=== PATIENT | female | born 1950 | race Caucasian/White ===

== ENCOUNTER → 2018-07-26 21:26 | Outpatient (CLI) | payer MEDICARE, SELFPAY ==
[2018-07-26 21:38] LABS: Absolute Lymphocyte Count 6.07 X10^3/ul (0.83-4.51); Absolute Neutrophil Count 4.6 X10^3/uL (2.0-7.7); Basophil# 0.04 X10^3/uL; Basophil% 0.4 % (0-1); Eosinophils% 0.9 % (0-5); Hemoglobin 13.2 g/dl (12.0-15.0); Lymphocyte # 6.07 X10^3/ul (4.0); Lymphocyte % 53.2 % (19-41); Mean Corpuscular Hgb 29.6 pg (27.0-32.0); Mean Corpuscular Volume 89.7 fL (81-99); Mean Platelet Vol. 10.2 fl (6.2-12.0); Monocyte% 5.3 % (0-10); Neutrophil # 4.58 X10^3/uL (2.7-7.7); Platelet Count 284 K/mm3 (150-450); RBC Distribution Width CV 12.2 % (11.6-14.6); RBC Distribution Width SD 39.9 fl (35.1-43.9); Red Blood Count 4.46 M/mm3 (4.2-5.4); White Blood Count 11.4 K/mm3 (4.4-11.0)
[2018-07-26 21:40] LABS: Differential Indicated SCAN CRITERIA MET; POSITIVE COUNT NO; POSITIVE DIFFERENTIAL YES; POSITIVE MORPHOLOGY NO
[2018-07-26 22:01] LABS: ALB/GLOB Ratio 0.9 RATIO (0.9-2.4); AST(SGOT) 16 U/L (15-37); Alanine Aminotransfer ALT/SGPT 20 U/L (13-56); Albumin, Serum 3.9 g/dL (3.2-5.0); Alkaline Phosphatase 71 U/L (45-117); Anion Gap 9 (5-15); BUN 28 mg/dL (7-18); BUN/Creat Ratio 32.4 RATIO (10-20); Calcium,Total 8.9 mg/dL (8.5-10.1); Chloride 106 mmol/L (98-107); Cholesterol 186 mg/dL (200); Creatinine, Serum 0.86 mg/dL (0.55-1.02); EST Glomerular Filtration Rate 70 mL/min (>60); Est Glom Filt Rate - Afr Amer 85 mL/min (>60); Globulin 4.2 g/dL (2.2-4.2); Glucose 130 mg/dL (74-106); High Density Lipoprotein 58 mg/dL; Protein, Total 8.1 g/dL (6.4-8.2); Sodium Level 138 mmol/L (136-145); Triglycerides 213 mg/dL; Very Low Density Lipoprotein 43 mg/dL (5-40)
[2018-07-26 22:31] LABS: Differential Comment SCANNED
== END ==
PROVIDERS: Visit Provider Nurse Practitioner
DX: E11.65 Type 2 diabetes mellitus with hyperglycemia (principal); E03.9 Hypothyroidism, unspecified; E78.5 Hyperlipidemia, unspecified; I10 Essential (primary) hypertension
CPT/HCPCS: 80053; 80061; 84443; 85025

== ENCOUNTER → 2019-03-20 | Outpatient (CLI) | payer MEDICARE, SELFPAY ==
[2019-03-20 14:50] VITALS: BMI 34.2
[2019-03-20 15:24] LABS: Hematocrit 41.6 % (37-47); Hemoglobin 13.5 g/dl (12.0-15.0); Mean Corp Hgb Conc 32.5 g/gl (32-36); Mean Corpuscular Hgb 28.5 pg (27.0-32.0); Mean Corpuscular Volume 87.8 fL (81-99); Mean Platelet Vol. 9.2 fl (6.2-12.0); Platelet Count 316 K/mm3 (150-450); RBC Distribution Width CV 12.6 % (11.6-14.6); RBC Distribution Width SD 40.4 fl (35.1-43.9); Red Blood Count 4.74 M/mm3 (4.2-5.4); White Blood Count 11.9 K/mm3 (4.4-11.0)
[2019-03-20 15:47] LABS: Scan Indicated on CBC? Y/N NO
== END | disposition home or self-care (01) ==
LOC: PAVLAB 14:58
PROVIDERS: Family Provider Nurse Practitioner; PCP Nurse Practitioner; Referring Provider Surgery; Visit Provider Surgery
DX: K62.5 Hemorrhage of anus and rectum (principal)
CPT/HCPCS: 36415; 85027

== ENCOUNTER 2019-03-24 06:03 | Day surgery (SDC) | payer MEDICARE, SELFPAY ==
[2019-03-20 14:50] VITALS: BMI 34.2
--- NOTE | 2019-03-24 05:17 | HP.PCM_ITS ---
Problem List (1) Rectal bleeding Status: Acute History and Physical Date of Admission: 03/24/19 MR#:[id number] Name: MICHAEL BAUTISTA Rep #: [id number] : 1950 Provider: Nathan Nuno MD Age/Sex: 68/F Location: [facility] [place] Status: Signed Intake Vital Signs 03/20/19 Height 5 ft 4 in 03/20/19 Weight: 200 lb 03/20/19 Body Mass Index (BMI) 34.3 03/20/19 Blood Pressure 183/105 H 03/20/19 Blood Pressure Location Lt brachial 03/20/19 Blood Pressure Position Sitting 03/20/19 Respiratory Rate 18 Intake Visit Reasons: [facility] [employer]nic [employer] Professor Required: No Is patient in pain?: No Allergies acetaminophen [From Vicodin] Allergy (Intermediate, Verified 03/20/19 14:26) Itching hydrocodone [From Vicodin] Allergy (Intermediate, Verified 03/20/19 14:26) Itching adhexive tape Allergy (Intermediate, Uncoded 03/20/19 14:26) dermatitis Medications blood sugar diagnostic strips See Dose Instructions .ROUTE .MEDSUPPLY #20 ea 07/25/18 [History Confirmed 07/25/18] atenolol 50 mg tablet 50 mg PO DAILY #90 tab 07/26/18 [Rx Confirmed 07/26/18] bupropion HCl XL 150 mg 24 hr tablet, extended release 150 mg PO QAM #90 tab 07/26/18 [Rx Confirmed 07/26/18] clopidogrel 75 mg tablet 75 mg PO DAILY #90 tab 07/26/18 [Rx Confirmed 07/26/18] lisinopril 20 mg tablet 20 mg PO DAILY #90 tab 07/26/18 [Rx Confirmed 07/26/18] metformin 1,000 mg tablet 1,000 mg PO BID #180 tab 07/26/18 [Rx Confirmed 07/26/18] fluoxetine 20 mg capsule 60 mg PO DAILY #270 cap 07/28/18 [Rx] levothyroxine 50 mcg tablet 50 mcg PO DAILY #90 tab 08/01/18 [Rx] pioglitazone 30 mg tablet 20 mg PO DAILY tab 03/20/19 [History Confirmed 03/20/19] PFSH Medical History Anger (Acute) Hepatitis A (Acute) Hyperlipidemia (Acute) IBS (irritable bowel syndrome) (Acute) Type 2 diabetes mellitus (Acute) stent non semi (Acute) Hypertension (Chronic) Surgical History H/O section (Acute) H/O heart artery stent (Acute) S/P tubal ligation (Acute) History of cholecystectomy (Acute) Family History Father Diabetes CAD (coronary artery disease) Hypertension Grandfather Heart disease Diabetes Social History Smoking Status: Never smoker alcohol intake: current HPI HPI HPI: MICHAEL BAUTISTA, is a 68 F who presents to the office today for HPI HPI Surgical H&P: Yes HPI: MICHAEL BAUTISTA, is a 68 F who presents to the office today for surgical consultation regarding repetitive episodes of bright red rectal bleeding. First episode was December 2018. Another episode January 2019. Then last week 2 additional episodes. She thinks in 2006 she had a colonoscopy. No acute findings at that time. She has a family history with a father with colon polyps. She has no family history of colon cancer. She personally has had a myocardial infarction. She has coronary stents. She is on clopidogrel. Her symptoms at the time of that was nausea with exertion. She is not complaining of that now. She is not a tobacco user. She has not had any weight loss and in fact she has had progressive weight gain. She denies any abdominal pain. Patient is referred by Lorrie Jack CNP and a written compromise surgical consult recommendations will be returned to her ROS General General: Yes weight change, appetite and fatigue; no colon cancer, breast cancer or weakness HEENT HEENT: No difficulty swallowing, eye injury, eye surgery, swollen glands or hoarseness Endo Endocrine: Yes thyroid disease and diabetes mellitus; no thyroid cancer, Hair loss, heat intolerance or cold intolerance Skin Skin: Yes changing moles; no rash Breast Breast: No left breast lump, right breast lump, nipple discharge, breast pain, abnormal mammogram, abnormal US or breast enlargement Musc Musculoskeletal: No back problems, arthritis, rheumatoid arthritis, gout or joint pain Cardio Cardiovascular: Yes heart disease, high blood pressure, heart attack and heart stent; no murmur, pacemaker, atrial fibrillation, palpitations, shortness of breat with exertion or chest pain Psych Psychiatric: Yes depression and anxiety; no hearing voices Resp Respiratory: Yes shortness of breath, No sleep apnea, No cough, No COPD, No asthma, No emphysema, No wheezing Gastro Gastrointestinal: No abdominal pain, Yes nausea or vomiting, Yes diarrhea, No constipation, Yes blood in stool, Yes acid reflux, Yes hemorrhoids, No ulcers, Yes gallbladder problem, No black,tarry stools [place] Hematologic: Yes blood thinners, No blood disorders, Yes bleeding, No anemia, No blood clots Neuro Neurologic: No system reviewed and no additional complaints, except as docu, No as per HPI, No abnormal walking, No abnormal hearing, No abnormal movements, No abnormal speech, No behavioral changes, No burning sensations, No confusion, No seizure-like activity, No unsteadiness, No dizziness, No localized weakness, No frequent falls, No headache(s), No lack of coordination, No loss of vision, No memory loss, No numbness, No other visual disturbances, No radiating pain, No restless legs, No sensory deficit, No fainting, No tingling, No tremor(s), No weakness, No other Exam Const General: cooperative, no acute distress Nutritional Appearance: obese Orientation: alert, awake [facility] Head: normal to inspection Eyes General: appearance normal, both eyes and all related structures Chest Breast Palpation: No nipple discharge Resp Effort & Inspection: normal respiratory effort Auscultation: clear to auscultation bilaterally Cardio Rate: regular rate Rhythm: regular rhythm Heart Sounds: no murmurs GI Palpation: soft, no hepatosplenomegaly Auscultation: normal bowel sounds Musc Cervical Spine: normal cervical lordosis Skin General: no rashes or lesions noted Neuro Cognition: normal cognition Extrem General: no calf tenderness bilaterally Psych Affect: normal affect Assessment & Plan Problems 1. Rectal bleeding K62.5 Plan 68-year-old female with rectal bleeding of undetermined etiology. She has no abdominal pain with this. Her last colonoscopy was 12 years ago. She has a family history of colon polyps in her father but no family history of colon cancer. I recommended the patient a colonoscopy with possible biopsy or polypectomy as indicated. She is aware of the technique, benefit, risk and alternatives. Because of the patient's cardiac history and history of coronary stenting I will utilize monitored anesthesia care. I have asked her to hold her clopidogrel just the day prior to the procedure. To assure that she is not significantly anemic we will also obtain a CBC. She has had an opportunity to ask and have questions answered. We will schedule and proceed as noted. cc: Lorrie Jack, MARTIR Nuno M.D., F.A.C.S. Coding Level of Care Code Detailed, Low Diagnoses Rectal bleeding K62.5 03/20/19 1450 <Electronically signed by Nathan Nuno MD> Date Nathan Nuno MD Cosigner Signature: Date (if applicable) CC: AGGIE Jack ~ I have re-examined the patient. There are no clinical changes since date of exam.
[2019-03-24 06:33] VITALS: BP 157/79; PULSE 55; RESP 16; TEMP 35.9; O2SAT 99; BMI 34.7
[2019-03-24 06:40] LABS: Bedside Glucose 218 mg/dL (70-110)
--- NOTE | 2019-03-24 07:00 | COLBX_PTH ---
PATIENT: MICHAEL BAUTISTA LOC: EN U#:[id number] AGE/SX: 68/F ROOM: RE03/24/[address]: Dr. Nathan Nuno MD : 1950 BED: DIS: 03/24/2019 SPEC #: [id number] RECD: 03/24/19 07:47 STATUS: CHRISTINE JOSE #: [id number] HAWA: 03/24/19 07:[address]: Nathan Nuno DEPT: SURGICAL PATHOLOGY RECD BY: Hernesto Moe ENTERED: 03/24/19 08:43 SP TYPE: COLON BX OTHR DR: Lorrie Jack, CERTIFIED PHLEBOTOMIST-C Tissues: Ascending colon Procedures: Surgery Specimen Level IV HEADER OPERATION: Colonoscopy (MAC) PRE-OP DIAGNOSIS: Rectal bleeding TISSUE SUBMITTED: Ascending colon polyp MICROSCOPIC DIAGNOSIS Ascending colon polyp, biopsy: Tubular adenoma. AM:nicolette 03/27/19 COMMENT Case has been reviewed in consultation with Dr. Piña who concurs with the above diagnosis. IDC:CHRSITIANO MICROSCOPIC DESCRIPTION Slides are reviewed. GROSS DESCRIPTION Received in fixative is one container labeled with the patient's name and designated ascending colon polyp. The specimen consists of one irregular fragment of light madrigal soft tissue that measures 0.5 x 0.2 x 0.1 cm. The specimen is totally submitted in one cassette. / CHRISTIANO:nicolette 03/24/19 TC:5 CPT: 29109
[2019-03-24 07:19] VITALS: BP 146/71; BP 157/79; PULSE 54; RESP 18; TEMP 36.4; O2SAT 98
--- NOTE | 2019-03-24 07:19 | OP.ENDO_ITS ---
03/24/2019 Lorrie Jack NP [facility] [address] [place] [id number] Re : Colonoscopy procedure for Meryl Kaba Dear Ms. Jack This procedure was performed on Sunday, March 24, 2019. My impressions and recommendations are as follows: Impressions : - Non-thrombosed external hemorrhoids, non-thrombosed internal hemorrhoids and internal hemorrhoids that prolapse with straining, but spontaneously regress to the resting position (Grade II) found on digital rectal exam. Hemorrhoids likely source of reported rectal bleeding No anemia on laboratory check - One 4 mm polyp in the ascending colon, removed with a cold biopsy forceps. Resected and retrieved. - Diverticulosis in the sigmoid colon and in the descending colon. Recommendations : - Discharge patient to home. - Resume previous diet. - Continue present medications. - Telephone my office for pathology results in 1 week. - Repeat colonoscopy in 5 years for surveillance. My findings are described in the full procedure note, which is enclosed. If I can be of further assistance, please feel free to contact me at Doctor phone number(s): Work: . Sincerely, Nathan Nuno MD 03/24/2019 7:18:40 AM This report has been signed electronically.
[2019-03-24 07:20] VITALS: BP 126/114; BP 157/79; PULSE 53; RESP 18; O2SAT 97
[2019-03-24 07:26] VITALS: BP 150/68; BP 157/79; PULSE 57; RESP 18; O2SAT 96
[2019-03-24 07:31] VITALS: BP 133/67; BP 157/79; PULSE 55; RESP 18; TEMP 36.3; O2SAT 97
[2019-03-24 07:58] VITALS: BP 157/79
== END 2019-03-24 08:00 | disposition home or self-care (01) ==
LOC: EN 06:04 → AC 06:08
PROVIDERS: Family Provider Nurse Practitioner; PCP Nurse Practitioner; Referring Provider Nurse Practitioner; Visit Provider Surgery
PROC: 0DJD8ZZ Inspection of Lower Intestinal Tract, Via Natural or Artificial Opening Endoscopic (ICD-10-PCS; CPT 45378; principal; 2019-03-24 06:55)
DX: D12.2 Benign neoplasm of ascending colon (principal); K64.4 Residual hemorrhoidal skin tags; K64.1 Second degree hemorrhoids; K57.30 Diverticulosis of large intestine without perforation or abscess without bleeding; K58.9 Irritable bowel syndrome, unspecified; E11.9 Type 2 diabetes mellitus without complications; I10 Essential (primary) hypertension; I25.2 Old myocardial infarction; F32.9 Major depressive disorder, single episode, unspecified; F41.9 Anxiety disorder, unspecified; G25.81 Restless legs syndrome; K21.9 Gastro-esophageal reflux disease without esophagitis; E78.00 Pure hypercholesterolemia, unspecified; E06.9 Thyroiditis, unspecified; Z78.0 Asymptomatic menopausal state; Z86.19 Personal history of other infectious and parasitic diseases; Z95.5 Presence of coronary angioplasty implant and graft; Z90.49 Acquired absence of other specified parts of digestive tract; Z79.84 Long term (current) use of oral hypoglycemic drugs; Z79.899 Other long term (current) drug therapy
CPT/HCPCS: 45380; 82962; 88305; J7120; J2405

== ENCOUNTER → 2019-12-12 | Outpatient (CLI) | payer MEDICARE, SELFPAY ==
[2019-12-12 15:05] VITALS: BMI 30.9
[2019-12-12 21:41] LABS: Absolute Lymphocyte Count 3.32 X10^3/uL (0.83-4.51); Absolute Neutrophil Count 6.2 X10^3/uL (2.0-7.7); Basophil# 0.05 X10^3/uL; Basophil% 0.5 % (0-1); Hematocrit 46.3 % (37-47); Hemoglobin 15.1 g/dL (12.0-15.0); Lymphocyte # 3.32 X10^3/ul (4.0); Lymphocyte % 32.2 % (19-41); Mean Corp Hgb Conc 32.6 g/dL (32-36); Mean Corpuscular Hgb 28.9 pg (27.0-32.0); Mean Corpuscular Volume 88.7 fL (81-99); Mean Platelet Vol. 9.5 fl (6.2-12.0); Monocyte# 0.72 X10^3/uL; NRBC Flagged by Analyzer 0 % (0-5); Neutrophil # 6.18 X10^3/uL (2.7-7.7); Neutrophil % 59.9 % (47-70); Platelet Count 307 K/mm3 (150-450); RBC Distribution Width CV 12.2 % (11.6-14.6); RBC Distribution Width SD 39.8 fl (35.1-43.9); Red Blood Count 5.22 M/mm3 (4.2-5.4); White Blood Count 10.3 K/mm3 (4.4-11.0)
[2019-12-12 22:01] LABS: AST(SGOT) 23 U/L (15-37); Alanine Aminotransfer ALT/SGPT 27 U/L (13-56); Albumin, Serum 3.9 g/dL (3.2-5.0); Alkaline Phosphatase 70 U/L (45-117); Anion Gap 10 (5-15); BUN 15 mg/dL (7-18); BUN/Creat Ratio 14.2 RATIO (10-20); Calcium,Total 9.1 mg/dL (8.5-10.1); Chloride 101 mmol/L (98-107); Cholesterol 103 mg/dL (200); Creatinine, Serum 1.06 mg/dL (0.55-1.02); EST Glomerular Filtration Rate 55 mL/min (>60); Est Glom Filt Rate - Afr Amer 66 mL/min (>60); Globulin 4.1 g/dL (2.2-4.2); Glucose 182 mg/dL (74-106); High Density Lipoprotein 49 mg/dL; Potassium 3.4 mmol/L (3.5-5.1); Sodium Level 135 mmol/L (136-145); Thyroid Stim Hormone (TSH) 1.05 uIU/mL (0.358-3.74); Triglycerides 158 mg/dL; Very Low Density Lipoprotein 32 mg/dL (5-40)
[2019-12-16 00:13] LABS: HPV Reflexed? NOT INDICATED
== END | disposition home or self-care (01) ==
PROVIDERS: PCP Nurse Practitioner; Referring Provider Nurse Practitioner; Visit Provider Nurse Practitioner
DX: Z01.419 Encounter for gynecological examination (general) (routine) without abnormal findings (principal); E11.69 Type 2 diabetes mellitus with other specified complication; E11.65 Type 2 diabetes mellitus with hyperglycemia; E78.2 Mixed hyperlipidemia
CPT/HCPCS: 80053; 80061; 84443; 85025; 88175; G0145